=== PATIENT | male | born 1990 | race American Indian/Alaskan Native ===

== ENCOUNTER 2017-09-09 22:18 | Emergency (ER) | payer MEDICAID ==
[2017-09-10] MEDS ORDERED: ATIVAN ONE (07:49)
[2017-09-10] MEDS ORDERED: VERSED IV ONE (07:52)
== END 2017-09-10 19:00 | disposition left against medical advice (07) ==
LOC: ED 22:18
DX: D57.1 Sickle-cell disease without crisis (principal); Z53.21 Procedure and treatment not carried out due to patient leaving prior to being seen by health care provider
CPT/HCPCS: J2060; J2250